=== PATIENT | male | born 1980 | race Caucasian/White ===

== ENCOUNTER 2017-09-02 22:47 | Emergency (ER) | payer BC, OTHER ==
[2017-09-02 22:53] VITALS: BP 117/79; PULSE 77; TEMP 98.7; BMI 29.9
--- NOTE | 2017-09-02 23:24 | PDOC ---
History of Present Illness - General Chief Complaint: Shortness of Breath Stated Complaint: SOB Time Seen by Provider: 09/02/17 22:53 History Source: Patient Exam Limitations: No Limitations - History of Present Illness Initial Comments: 09/02/17 23:34 This is a 37-year-old male who comes in complaining of shortness breath and once today. Patient flew out to [place] for the holiday weekend and prior to getting on the plane to fly back to [place] developed some shortness of breath and discomfort in his chest. Patient is otherwise healthy. He denies any cardiac risk factors he has no medical history does not smoke do any recreational drugs and has no family history of coronary artery disease. Patient also denies any risk factors for pulmonary embolism other than the flight to [place]. He denies any family history of hypercoagulability. Patient denies history of similar symptoms in the past and says he is not have a history of anxiety and has not been under a lot of stress. PAST MEDICAL HISTORY: no significant history PAST SURGICAL HISTORY: no significant history FAMILY HISTORY: no pertinant history SOCIAL HISTORY: Pt lives with family and is employed. MEDICATIONS: reviewed ALLERGIES: As per nursing notes Review of Systems General: No fevers or chills, no weakness, no weight loss HEENT: No change in vision. No sore throat,. No ear pain CardioVascular: No chest pain or shortness of breath Respiratory:No cough, or wheezing. Gastrointestinal: no nausea, vomitting, diarrhea or constipation, No rectal bleeding Genitourinary: No dysuria, hematuria, or frequency Musculoskeletal: No joint or muscle pain or swelling Neurologic: No headache, vertigo, dizziness or loss of consciousness Psychiatric: nor depression Skin: No rashes or easy bruising Endocrine: no increased thirst or abnormal weight change Allergic: no skin or latex allergy All other systems reviewed and normal Exam: General: Well-nourished well-developed individual, no acute distress HEENT: Throat: Normal, tonsils normal, no erythema or exudate Neck: Supple, no meningeal signs, no lymphadenopathy Eyes::Pupils equal reactive and round, extraocular motion intact Chest: Nontender to palpation Cardiac: S1-S2 normal, regular rate and rhythm, no murmurs rubs or gallops Respiratory: Lungs clear to auscultation bilateral Abdomen: Soft, nondistended, normal bowel sounds, nontender to palpation diffusely Extremities: Warm, dry, no cyanosis, clubbing, or edema Skin: No rashes Neuro: Alert and oriented x3, CN II - XII intact, nonfocal exam with normal strength, normal sensation, normal reflexes, normal gait, Psych: Normal mood and affect Medical decision making this is a 37-year-old male with shortness of breath and some chest discomfort. Patient had a recent cross-country flight prior to onset of the symptoms. Patient is otherwise healthy. Differential diagnosis includes PE, cardiac causes, anxiety, skeletal muscular. Will of obtain a EKG, chest x-ray and d-dimer. Will reassess and follow up on workup EKG shows normal sinus rhythm and rate is [address]-T wave changes normal EKG chest x-ray Chest x-ray shows no acute pathology Assessment and plan: This is a 37-year-old male with some shortness of breath and chest discomfort. Patient has no cardiac risk factors and does not have a family history of cardiac disease. Patient was ruled out for PE with a d-dimer. Patient was reassured this most likely is anxiety and was discharged home. Past History - Past Medical History Allergies/Adverse Reactions: Allergies Allergy/AdvReac Type Severity Reaction Status Date / Time No Known Allergies Allergy Verified 09/20/15 10:02 Home Medications: Ambulatory Orders NK [No Known Home Medication] 09/20/15 - Suicide/Smoking/Psychosocial Hx Smoking History: Never smoked Hx Alcohol Use: Yes (RARE) Drug/Substance Use Hx: No Substance Use Type: None *DC/Admit/Observation/Transfer Diagnosis at time of Disposition: Shortness of breath - Discharge Dispostion Disposition: HOME Condition at time of disposition: Good Decision to Admit order: No - Referrals - Patient Instructions Additional Instructions: Return to the emergency department immediately with ANY new, persistent or worsening symptoms. Continue any medications as previously prescribed by your physician. You should follow up with your primary doctor as soon as possible regarding today's emergency department visit. . Please make sure your doctor reviews the results of your emergency evaluation. Thank you for coming to the Emergency Department today for your care. It was a pleasure to see you today. Please note that your evaluation is INCOMPLETE until you follow-up with your doctor. - Post Discharge Activity
--- NOTE | 2017-09-03 13:31 | EKG ---
Test Reason : Blood Pressure : / mmHG Vent. Rate : 068 BPM Atrial Rate : 068 BPM P-R Int : 168 ms QRS Dur : 084 ms QT Int : 370 ms P-R-T Axes : 049 003 018 degrees QTc Int : 393 ms NORMAL SINUS RHYTHM NORMAL ECG NO PREVIOUS ECGS AVAILABLE Confirmed by DANNY MCCORD, BRIANA ([id number]) on 09/03/2017 1:30:52 PM Referred By: DARREN LEWIS Confirmed By:BRIANA DELGADO MD
== END 2017-09-03 00:41 | disposition home or self-care (01) ==
LOC: FER 22:47
DX: R06.02 Shortness of breath (principal)
CPT/HCPCS: 36415; 71046-TC-FY; 85379; 93005; 99283-25